=== PATIENT | female | born 1935 | race Caucasian/White ===

== ENCOUNTER 2016-06-23 12:19 | Outpatient (CLI) | payer MEDICARE, OTHER | END 2016-06-23 12:20 | LOC: NAVSJIPCSP 12:19 | PROVIDERS: ATTEND Internal Medicine | DX: R30.0 Dysuria (principal) | CPT/HCPCS: 36415; 87086 ==

== ENCOUNTER 2017-01-04 08:50 | Outpatient (CLI) | payer MEDICARE ==
--- NOTE | 2017-01-04 10:57 | ULT ---
BILATERAL CAROTID DUPLEX ULTRASOUND: DATE: 01/04/17 HISTORY: Atherosclerotic vascular disease, carotid stenosis. TECHNIQUE: Quinones scale ultrasound with color flow and spectral Doppler imaging of the extracranial carotid arter y systems performed bilaterally. FINDINGS: There is plaque formation in the left carotid bulb and proximal left ICA. The peak systolic velocity in the right ICA measures 78 cm/second with an end-diastolic velocity of 19 cm/second and a systolic ratio of 1.01. The peak systolic velocity in the left ICA measures 79 cm/second with an end-diastolic velocity of 2 0 cm/second and a systolic ratio of 1.05. Flow in both vertebral arteries remains antegrade. IMPRESSION: No evidence of hemodynamically significant stenosis. POS: DISHA
[2017-01-04 11:08] LABS: Free T4 (Free Thyroxine) 0.79 ng/dL (0.70-1.48); Thyroid Stimulating Hormone 1.269 uIU/mL (0.35-4.94)
--- NOTE | 2017-01-04 11:51 | ULT ---
THYROID ULTRASOUND: HISTORY: Thyroid mass. Real-time imaging of the right and left lobes of the thyroid were performed. The right lobe measure s 2.3 x 2.5 x 4.3 cm and the left lobe 1.0 x 1.9 x 3.5 cm. There is a right lobe thyroid nodule. I t is somewhat difficult to define the borders. It measures approximately 2 x 2.9 cm and appears dewey id. IMPRESSION: Large right lobe thyroid nodule. Would suggest consideration for fine needle aspiration for further assessment. POS: AJAY
== END 2017-01-04 08:51 | disposition home or self-care (01) ==
LOC: NAV ULT 08:50
PROVIDERS: ATTEND Internal Medicine
DX: I65.23 Occlusion and stenosis of bilateral carotid arteries (principal); E07.89 Other specified disorders of thyroid; E04.1 Nontoxic single thyroid nodule
CPT/HCPCS: 36415; 76536; 84439; 84443; 84481; 93880